=== PATIENT | female | born 1935 | race Caucasian/White ===

== ENCOUNTER 2017-04-29 01:15 | Emergency (ER) | payer MEDICARE ==
[2017-04-29] MEDS: 0.9 % SODIUM CHLORIDE 500 ML IV ONE (01:20)
[2017-04-29] MEDS: ONDANSETRON HCL/PF 4 MG/ 2ML VIAL IVP ONE (01:20)
[2017-04-29] MEDS ORDERED: PROMETHAZINE HCL 25 MG/ML VIAL ONE (01:28)
[2017-04-29 01:31] LABS: BASOPHILS % 0.7 (0.0-1.5); EOSINOPHILS % 2.1 % (0.0-6.8); MEAN CORPUSCULAR HEMOGLOBIN 31.1 pg (28.0-34.0); MEAN CORPUSCULAR VOLUME 93.6 fl (80.0-100.0); MONOCYTES % 5.7 % (0.0-11.0); NEUTROPHILS # 3.7 # k/uL (1.4-7.7)
[2017-04-29 01:47] LABS: eGFR (African) > 60; eGFR (Non-African) > 60
[2017-04-29] MEDS: PROMETHAZINE HCL 25 MG in 0.9 % SODIUM CHLORIDE 50 ML IV ONE (02:05)
--- NOTE | 2017-04-29 02:51 | Diagnostic Imaging Report ---
SRINIVAS CABRERA~ [facility] [address] [facility] [address] [address] ~ ~ ~ ~ Report Submission Date: Apr 29, 2017 2:41:01 AM CDT Patient ~ Study Name: KEATON COLORADO ~ Date: Apr 29, 2017 2:06:23 AM CDT ~ Modality Type: CR Gender: F ~ Description: CHEST : 35 ~ Institution: [facility] Physician: SRINIVAS CABRERA ~ ~ ~ ~ Examination: Portable chest History: Chest discomfort Findings: Single view of the chest demonstrates a normal cardiac and mediastinal silhouette. Lung escobar without focal infiltrate. Chronic interstitial changes. No effusion. Osseous structures are appropriate for age. Impression: Chronic interstitial changes. No acute process. ~ Electronically signed on Apr 29, 2017 2:41:01 AM CDT by: Emerson SUAREZ
--- NOTE | 2017-04-29 02:52 | Diagnostic Imaging Report ---
SRINIVAS CABRERA~ [facility] [address] [facility] [address] [place] [address]. [id number] ~ ~ ~ ~ Report Submission Date: Apr 29, 2017 2:43:24 AM CDT Patient ~ Study Name: KEATON COLORADO ~ Date: Apr 29, 2017 2:13:47 AM CDT ~ Modality Type: CR Gender: F ~ Description: ABDOMEN : 35 ~ Institution: [facility] Physician: SRINIVAS CABRERA ~ ~ ~ ~ Examination: Obstruction series History: Abdominal discomfort Findings: 2 views obtained of the abdomen. No abnormal dilation of the large or small bowel. Air and stool throughout the large bowel. No suspicious calcification projecting over the renal fossa or the lower pelvic region.~ Pelvic phleboliths. The of the Osseous structures demonstrate degenerative changes and lumbar curvature to the right. Impression: No abnormal dilation. ~No ileus or obstruction. No suspicious calcifications by plain film sensitivity. ~ Electronically signed on Apr 29, 2017 2:43:24 AM CDT by: Emerson SUAREZ
[2017-04-29] MEDS: CIPROFLOXACIN HCL 500 MG TABLET PO ONE (03:25)
--- NOTE | 2017-04-29 03:50 | ED Physician Documentation ---
General Adult - HISTORIAN Historian: patient - HPI Stated Complaint: nausea and abd pain Chief Complaint: Abdominal Pain Onset: hours Timing: still present Severity: moderate Further Comments: yes (Pt is an 81 yo female with abd pain. Pt states that she is unable to vomit after having had GI surgery, apparently for hiatal hernia repair, and that the pain is from her heaving without vomiting. Pt does not know why she might be nauseated. She recalls eating no spoiled food. 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 Of note, her developed diarrhea at about the same time.) - ROS CONST: no problems EYES/ENT: none CVS/RESP: none GI/: abdominal pain, nausea MS/SKIN/LYMPH: none - PAST HX Past History: hypertension, other (neuropathy) Surgeries/Procedures: other (appendectomy, hysterectomy, ortho surgery, hernia ( ? hiatal hernia) repair.) Allergies/Adverse Reactions: Allergies Allergy/AdvReac Type Severity Reaction Status Date / Time Penicillins Allergy Verified 04/29/17 01:38 tramadol AdvReac Headache Verified 04/29/17 01:38 Home Medications: Ambulatory Orders Medication Instructions Recorded Acetaminophen [Tylenol] 650 mg PO Q6 01/03/13 Amlodipine Besylate [Norvasc] 5 mg PO D 01/03/13 Calcium Carbonate/Vitamin D3 2 each PO D 01/03/13 [Calcium + Vitamin D Tablet] Ergocalciferol (Vitamin D2) 8,000 unit PO D 01/03/13 [Ergocalciferol] Gabapentin [Gralise] 300 mg PO D 01/03/13 Hydrochlorothiazide [Hydrodiuril] 25 mg PO 01/03/13 Ondansetron HCl Rapdis [Zofran Odt] 4 mg PO Q6 PRN #30 tab 05/04/16 Aspirin EC [Ecotrin] 81 mg PO D 04/29/17 Betamethasone Dipropionate 1 appl TOP BID 04/29/17 [Diprosone] Ciprofloxacin HCl [Cipro] 250 mg PO Q12H #10 tablet 04/29/17 Metoprolol Succinate [Toprol XL] 25 mg PO D 04/29/17 - SOCIAL HX Smoking History: non-smoker - FAMILY HX Family History: No - VITAL SIGNS Vital Signs: Vital Signs Temp Pulse Resp BP Pulse Ox 97.6 F 64 20 211/79 99 04/29/17 01:15 04/29/17 01:15 04/29/17 01:15 04/29/17 01:15 04/29/17 01:15 - REVIEWED ASSESSMENTS Nursing Assessment Reviewed: Yes Vitals Reviewed: Yes Progress - Progress Progress: 500 cc NS IVF Zofran 4 mg IV Phenergan 25 mg IV (in NS) improved Pt has Zofran at home. Will rx cipro given household member with diarrhea, pt with GI sx and problematic vomiting s/p hiatal hernia repair. Cipro 500 mg po x 1 Rx Cipro 500 mg po bid x 5 d - EKG/XRAY/CT EKG: NSR (HR=72; 1st degree A-V block; LAD; possible LVH by voltage.) XRAY: chest (Chronic interstitial changes. No acute process.), abdomen ( No abnormal dilation. No ileus or obstruction.) ED Results Lab/Radiology - Lab Results Lab Results: Lab Results 04/29/17 04/29/17 04/29/17 01:26 01:26 01:26 WBC 6.60 K/ul K/ul (4.00-12.00) RBC 4.39 M/ul M/ul (3.90-5.20) Hgb 13.7 g/dL g/dL (12.0-16.0) Hct 41.1 % % (34.5-46.5) MCV 93.6 fl fl (80.0-100.0) MCH 31.1 pg pg (28.0-34.0) MCHC 33.3 g/dL g/dL (30.0-36.0) RDW 13.0 % % (11.3-14.3) Plt Count 239 K/mm3 K/mm3 (130-400) Neut % (Auto) 56.1 % % (39.0-79.0) Lymph % (Auto) 34.1 % % (16.0-50.0) [place] % (Auto) 5.7 % % (0.0-11.0) Eos % (Auto) 2.1 % % (0.0-6.8) Baso % (Auto) 0.7 (0.0-1.5) Neut # (Auto) 3.7 # k/uL # k/uL (1.4-7.7) Lymph # (Auto) 2.3 # k/uL # k/uL (0.6-4.0) [place] # (Auto) 0.4 # k/uL # k/uL (0.0-0.9) Eos # (Auto) 0.1 # k/uL # k/uL (0.0-0.6) Baso # (Auto) 0.0 # k/uL # k/uL (0.0-0.5) Reactive Lymphs % 1.4 % % (0.0-5.0) Reactive Lymphs # 0.1 # k/uL # k/uL (0.0-0.8) Sodium 142 mmol/L mmol/L (136-145) Potassium 4.0 mmol/L mmol/L (3.5-5.0) Chloride 107 mmol/L mmol/L (98-110) Carbon Dioxide 28 mmol/L mmol/L (20-32) BUN 19 mg/dL mg/dL (10-26) Creatinine 1.1 mg/dL mg/dL (0.4-1.5) Est GFR ( Amer) > 60 (60 - ) Est GFR (Non-Af Amer) > 60 (60 - ) Glucose 131 mg/dL H mg/dL (70-99) Calcium 10.3 mg/dL mg/dL (8.5-10.5) Total Bilirubin 0.9 mg/dL mg/dL (0.2-1.2) AST 19 U/L U/L (0-41) ALT 14 U/L U/L (0-45) Alkaline Phosphatase 94 U/L U/L (46-116) Creatine Kinase 61 U/L U/L (0-225) CK-MB (CK-2) 0.9 ng/mL ng/mL (0.0-5.6) Troponin I < 0.03 ng/mL L ng/mL (0.03-0.06) Total Protein 7.4 g/dL g/dL (6.0-8.5) Albumin 4.7 g/dL g/dL (3.0-5.5) Amylase 86 U/L U/L (20-104) - Orders Orders: ED Orders Category Date Time Status Place IV Lock 1T Care 04/29/17 01:17 Active ABDOMEN 1 VIEW [RAD] Stat Exams 04/29/17 Ordered CHEST 1 VIEW [RAD] Stat Exams 04/29/17 Ordered AMYLASE Routine Lab 04/29/17 01:26 Completed CBC/PLATELET/DIFF Routine Lab 04/29/17 01:26 Completed CKMB Stat Lab 04/29/17 01:26 Completed CMP Routine Lab 04/29/17 01:26 Completed CREATINE KINASE Routine Lab 04/29/17 01:26 Completed TROPONIN I (cTnI) Stat Lab 04/29/17 01:26 Completed URINALYSIS Routine Lab 04/29/17 Ordered 0.9 % Sodium Chloride [Normal Saline] 500 ml Med 04/29/17 01:17 Active IV NOW Ondansetron HCl/Pf [Zofran 4 mg/2 ml] Med 04/29/17 01:16 Discontinued 4 mg IVP NOW ONE Promethazine HCl [Phenergan] Med 04/29/17 01:28 Discontinued 25 mg .ROUTE .STK-MED ONE Promethazine HCl [Phenergan] 25 mg Med 04/29/17 01:58 Discontinued 0.9 % Sodium Chloride [Sodium Chloride] 50 ml IV NOW EKG WITH COMPARISON Stat Ther 04/29/17 Ordered General Adult Physical Exam - PHYSICAL EXAM GENERAL APPEARANCE: moderate distress EENT: pharynx normal NECK: normal inspection, supple RESPIRATORY: no resp distress, chest non-tender, breath sounds normal CVS: reg rate & rhythm, heart sounds normal ABDOMEN: soft, tenderness (diffuse abd tenderness), decreased BS BACK: normal inspection, no CVA tenderness SKIN: warm/dry, normal color EXTREMITIES: non-tender, normal range of motion, no evidence of injury NEURO: oriented X3, motor nml, sensation nml Discharge Clincal Impression: Nausea Abdominal pain Qualifiers: Abdominal location: generalized Qualified Code(s): R10.84 - Generalized abdominal pain Prescriptions: Ciprofloxacin HCl [Cipro] 250 mg PO Q12H #10 tablet Referrals: Abdirahman Gabriel [Primary Care Provider] - Home Medications: Ambulatory Orders Acetaminophen [Tylenol] 650 mg PO Q6 01/03/13 Amlodipine Besylate [Norvasc] 5 mg PO D 01/03/13 Calcium Carbonate/Vitamin D3 [Calcium + Vitamin D Tablet] 2 each PO D 01/03/13 Ergocalciferol (Vitamin D2) [Ergocalciferol] 8,000 unit PO D 01/03/13 Gabapentin [Gralise] 300 mg PO D 01/03/13 Hydrochlorothiazide [Hydrodiuril] 25 mg PO 01/03/13 Ondansetron HCl Rapdis [Zofran Odt] 4 mg PO Q6 PRN #30 tab 05/04/16 Aspirin EC [Ecotrin] 81 mg PO D 04/29/17 Betamethasone Dipropionate [Diprosone] 1 appl TOP BID 04/29/17 Ciprofloxacin HCl [Cipro] 250 mg PO Q12H #10 tablet 04/29/17 Metoprolol Succinate [Toprol XL] 25 mg PO D 04/29/17 Condition: Good Disposition: 01 HOME, SELF-CARE Decision to Admit: NO Decision Time: 03:30
[2017-04-29 04:36] VITALS: BP 194/70
[2017-04-29 05:45] LABS: APPEARANCE,URINE CLEAR (CLEAR); COLOR,URINE YELLOW (YELLOW); OCCULT BLOOD,URINE TRACE-INTACT (NEGATIVE); UROBILINOGEN URINE 0.2 Eu (0.2-1.0)
== END 2017-04-29 03:32 | disposition home or self-care (01) ==
LOC: ED 01:15
DX: R10.84 Generalized abdominal pain (principal)
CPT/HCPCS: 71010; 74000; 80053; 81002; 82150; 82550; 82553; 84484; 85025; 93005; J2405; J2550; J7060; 96361; 96365; 96375; 99283; S1016

== ENCOUNTER 2017-12-20 23:22 | Emergency (ER) | payer MEDICARE ==
[2017-12-20] MEDS ORDERED: ASPIRIN 81 MG CHEW TAB PO ONE (23:26)
--- NOTE | 2017-12-20 23:26 | ED Physician Documentation ---
General Adult - HISTORIAN Historian: patient, spouse - HPI Stated Complaint: chest/abdominal pain Chief Complaint: Abdominal Pain Onset: hours (2) Timing: still present, worse Severity: moderate Further Comments: yes (She states at 9pm while watching TV she got a sharp and hard pain in her upper abdomen/chest area. She states she did not have any new food items. Denies this pain in the past - however after discussion she did note the pain was similar in April. She states she has nausea and "I cant puke due to a surgery I had a few years ago" . She denies a fever. No sick exposures. She reports a bowel movement this am. She does have a "mild case" of kidney disease and states she is monitored by a specialist. (reports her b/p at last visit there waws 210/110 and he did not want to change her meds) She does see her PCP regularly. She has no cardiac history ( per her chart she was on Novasc and Metoprolol but states she is no longer taking these meds) Denies any diaphoresis.) Last known Well Code/Unknown Code: Unknown - ROS CONST: no problems GI/: abdominal pain, nausea. denies: problems urinating, vomiting, diarrhea MS/SKIN/LYMPH: none NEURO/PSYCH: denies: headache, fainting, dizziness - PAST HX Past History: hypertension, other ("a surgery to keep me from vomiting" , CKD ( mild per her report) ) Surgeries/Procedures: other Immunizations: UTD Allergies/Adverse Reactions: Allergies Allergy/AdvReac Type Severity Reaction Status Date / Time Penicillins Allergy Verified 12/21/17 00:00 tramadol AdvReac Headache Verified 12/21/17 00:00 Home Medications: Ambulatory Orders Medication Instructions Recorded Acetaminophen [Tylenol] 650 mg PO Q6 01/03/13 Calcium Carbonate/Vitamin D3 2 each PO D 01/03/13 [Calcium + Vitamin D Tablet] Ergocalciferol (Vitamin D2) 8,000 unit PO D 01/03/13 [Ergocalciferol] Gabapentin [Gralise] 300 mg PO D 01/03/13 Hydrochlorothiazide [Hydrodiuril] 25 mg PO DAILY 01/03/13 Aspirin EC [Ecotrin] 81 mg PO D 04/29/17 Betamethasone Dipropionate 1 appl TOP BID 06/24/17 [Diprosone] - SOCIAL HX Smoking History: non-smoker Alcohol Use: none Drug Use: none - FAMILY HX Family History: No - VITAL SIGNS Vital Signs: Vital Signs Temp Pulse Resp BP Pulse Ox 194/70 04/29/17 03:40 - REVIEWED ASSESSMENTS Nursing Assessment Reviewed: Yes Vitals Reviewed: Yes Progress - Progress Progress: 2345: Continues to report pain as a 10 /1/10 scale. DG 0002: continues to complain of pain 7 1/10 scale. Nausea is "some better" DG 0040: states pain is a 3 on 1/10 scale. resting in room quietly. DG 0102: Discussed findings with spouse and pt. Will await labs and will follow up with PCP if needed. They voice understanding.DG 0135: resting quietly in bed. No complaints DG 0215: Discussed case with Dr Healy. Will send pt home with follow up in Am by PCP . DG ED Results Lab/Radiology - Radiology Radiology Impressions: CT abdomen and pelvis without contrast Date of study: 21 December 2017 CLINICAL HISTORY: UPPER ABD PAIN X 3 HOURS (Hx) / PAIN, NAUSEA (DICOM Hx) TECHNIQUE: 5 mm contiguous axial images of the abdomen and pelvis non contrast. FINDINGS: The lung bases are clear. A hiatus hernia is noted. There is minimal bibasilar atelectasis. a 1 centimeter cyst is present in the left lobe the liver. There are calcified granulomas in the spleen. Multiple gallstones are noted. There is no adrenal or pancreas lesion. The kidneys show cortical thinning. Aortoiliac vascular calcification is noted. An umbilical hernia contains only fat. Lumbar fusion and laminectomies. The uterus been removed. Bladder is unremarkable. The rectum is distended with retained fecal material. Left colon diverticulosis present. IMPRESSION: Cholelithiasis Liver cyst Hysterectomy, Lumbar laminectomies and lumbar fusion. Bilateral renal cortical thinning Minimal bibasilar atelectasis Hiatus hernia Left colon diverticulosis and possible fecal impaction the rectum Electronically signed on Dec 21, 2017 12:43:47 AM TOOL AND GAUGE INSPECTOR by: Tyson Best portable upright radiographs of the chest Clinical history: Chest pain Technique: anterior /posterior portable upright Findings: The lung escobar are clear. The heart and mediastinal structures are normal. The bony thorax is unremarkable. No pneumothorax or pleural effusion is seen. Impression: No acute pulmonary disease Electronically signed on Dec 21, 2017 12:44:26 AM TOOL AND GAUGE INSPECTOR by: Tyson Foster General Adult Physical Exam - PHYSICAL EXAM GENERAL APPEARANCE: moderate distress EENT: eye inspection normal NECK: normal inspection RESPIRATORY: no resp distress, chest non-tender, breath sounds normal CVS: reg rate & rhythm, heart sounds normal, equal pulses, no murmur ABDOMEN: normal bowel sounds, tenderness, abnormal bowel sounds, guarding. No: McBurney's point tenderne SKIN: warm/dry EXTREMITIES: non-tender, normal range of motion, no evidence of injury, no edema NEURO: oriented X3, CN's nml as tested, motor nml, sensation nml, mood/affect nml Discharge Clincal Impression: Cholelithiasis Qualifiers: Cholelithiasis location: gallbladder Cholecystitis presence: without cholecystitis Biliary obstruction: without biliary obstruction Qualified Code(s) : K80.20 - Calculus of gallbladder without cholecystitis without obstruction Constipation Qualifiers: Constipation type: unspecified constipation type Qualified Code(s): K59.00 - Constipation, unspecified Referrals: Elan Guerrero MD [Primary Care Provider] - 2 Days Comments: 1. Hydrocodone /APAP 5mg/325 mg Take 1/2 every 8 hours as needed for pain DG 2. Zofran 4 mg take 1 by mouth every 8 hours as needed for nausea 3. Magnesium Citrate 1/4 of bottle and if no results in 1 hour may repeat 1/4 bottle 4. Fluids 5. [place] diet if tolerated well 6. Call PCP in AM 7. Return to ER for pain or other concerns. Condition: Stable Disposition: 01 HOME, SELF-CARE Decision to Admit: NO Date of Decison to Admit: 12/21/17 Decision Time: 02:25
[2017-12-20] MEDS ORDERED: ONDANSETRON HCL/PF 4 MG/ 2ML VIAL IVP ONE (23:28)
[2017-12-20] MEDS ORDERED: MAG HYDROX/AL HYDROX/SIMETH 30 ML, Lidocaine 2%Visc 15ml 20 MG, PHENobarb/HYOSCY/ATROPI... PO ONE ×3 (23:29)
[2017-12-20] MEDS ORDERED: Lidocaine 2%Visc 15ml 20 MG/ML UDC ONE (23:40)
[2017-12-20] MEDS ORDERED: MAGNESIUM HYDROXIDE/AL HYDROX 30 ML UDC PO ONE (23:40)
[2017-12-20 23:46] LABS: BASOPHILS % 1.2 (0.0-1.5); EOSINOPHILS % 2.4 % (0.0-6.8); MEAN CORPUSCULAR HEMOGLOBIN 30.3 pg (28.0-34.0); MEAN CORPUSCULAR VOLUME 93.1 fl (80.0-100.0); MONOCYTES % 5.6 % (0.0-11.0); NEUTROPHILS # 4.1 # k/uL (1.4-7.7)
[2017-12-20] MEDS ORDERED: KETOROLAC TROMETHAMINE 30 MG/1ML VIAL ONE (23:54)
[2017-12-20] MEDS ORDERED: KETOROLAC TROMETHAMINE 30 MG/1ML VIAL IM ONE (23:54)
[2017-12-21] MEDS ORDERED: KETOROLAC TROMETHAMINE 30 MG/1ML VIAL IVP ONE (00:01)
[2017-12-21] MEDS ORDERED: 0.9 % SODIUM CHLORIDE 1,000 ML IV ONE (00:08)
[2017-12-21 00:28] LABS: eGFR (African) > 60; eGFR (Non-African) > 60
--- NOTE | 2017-12-21 00:50 | Diagnostic Imaging Report ---
ZUNILDA MG [facility] [address] Count Includes [facility] [address] [place], [place]. [address] Report Submission Date: Dec 21, 2017 12:44:26 AM WAREHOUSE TRAFFIC SUPERVISOR Patient Study Name: KEATON COLORADO Date: Dec 21, 2017 12:14:28 AM WAREHOUSE TRAFFIC SUPERVISOR Modality Type: CR Gender: F Description: CHEST : 35 Institution: [facility] Physician: ZUNILDA MG Ap portable upright radiographs of the chest Clinical history: Chest pain Technique: anterior /posterior portable upright Findings: The lung escobar are clear. The heart and mediastinal structures are normal. The bony thorax is unremarkable. No pneumothorax or pleural effusion is seen. Impression: No acute pulmonary disease Electronically signed on Dec 21, 2017 12:44:26 AM WAREHOUSE TRAFFIC SUPERVISOR by: Tyson SUAREZ
--- NOTE | 2017-12-21 00:51 | Diagnostic Imaging Report ---
ZUNILDA MG [facility] [address] [facility] [address] [place], [place]. [address] Report Submission Date: Dec 21, 2017 12:43:47 AM MACHINIST BRAKE Patient Study Name: KEATON COLORADO Date: Dec 21, 2017 12:17:57 AM MACHINIST BRAKE Modality Type: CT\SR Gender: F Description: CT ABD & PELVIS W/O CO : 35 Institution: [facility] Physician: ZUNILDA MG CT abdomen and pelvis without contrast Date of study: 21 December 2017 CLINICAL HISTORY: UPPER ABD PAIN X 3 HOURS (Hx) / PAIN, NAUSEA (DICOM Hx) TECHNIQUE: 5 mm contiguous axial images of the abdomen and pelvis non contrast. FINDINGS: The lung bases are clear. A hiatus hernia is noted. There is minimal bibasilar atelectasis. a 1 centimeter cyst is present in the left lobe the liver. There are calcified granulomas in the spleen. Multiple gallstones are noted. There is no adrenal or pancreas lesion. The kidneys show cortical thinning. Aortoiliac vascular calcification is noted. An umbilical hernia contains only fat. Lumbar fusion and laminectomies. The uterus been removed. Bladder is unremarkable. The rectum is distended with retained fecal material. Left colon diverticulosis present. IMPRESSION: Cholelithiasis Liver cyst Hysterectomy, Lumbar laminectomies and lumbar fusion. Bilateral renal cortical thinning Minimal bibasilar atelectasis Hiatus hernia Left colon diverticulosis and possible fecal impaction the rectum Electronically signed on Dec 21, 2017 12:43:47 AM MACHINIST BRAKE by: Tyson SUAREZ
[2017-12-21] MEDS ORDERED: HYDROcodone /APAP 5/325 1 EACH TABLET PO ONE (02:17)
[2017-12-21 03:01] VITALS: BP 181/63
== END 2017-12-21 02:45 | disposition home or self-care (01) ==
LOC: ED 23:22
DX: K80.20 Calculus of gallbladder without cholecystitis without obstruction (principal); K59.00 Constipation, unspecified
CPT/HCPCS: 71045; 74176; 80053; 82550; 82553; 83690; 83880; 84484; 85025; 85379; 93005; A9270; J1885; J2405; J7030; 96365; 96375; 99283; S1016